=== PATIENT | male | born 1985 | race Caucasian/White ===

== ENCOUNTER 2017-02-10 15:46 | Emergency (ER) | payer OTHER ==
[2017-02-10 16:34] VITALS: BMI 27.3
--- NOTE | 2017-02-10 18:01 | PDOC ---
Attending Attestation - Resident Resident Name: Chad Hurt - ED Attending Attestation I have performed the following: I have examined & evaluated the patient, The case was reviewed & discussed with the resident, I agree w/resident's findings & plan, Exceptions are as noted - HPI HPI: 02/10/17 17:59 31-year-old male presents with atraumatic left-sided abdominal pain associated with hard stools and constipation. Last bowel movement was noted to be 5 days previously. - Physicial Exam PE: 02/10/17 17:59 Patient is awake and alert, afebrile, hemodynamically stable. heent-wnl; no scleral icterus; CTA; rrr; + mild to moderate left upper and left lower quadrant tenderness to palpation with some periumbilical tenderness to palpation , no guarding rebound; no CVA tenderness; no palpable hernias; - Medical Decision Making 02/10/17 18:00 31-year-old male presents with atraumatic left-sided abdominal pain with hard stools and constipations. We'll obtain CBC/CMP/UA. Will obtain CT of abdomen and pelvis with by mouth and IV contrast. Will reassess. Differential diagnoses includes diverticulitis versus colitis versus mass. 02/10/17 22:24 Patient with epiploic appendicitis. No acute issues. Patient tolerates by mouth. Will discharge.
--- NOTE | 2017-02-10 18:19 | PDOC ---
History of Present Illness - General History Source: Patient Exam Limitations: No Limitations - History of Present Illness Initial Comments: 02/10/17 17:28 Patient is a 31M with no significant medical history here today complaining of lower left quadrant for the past 5 days. He says his last bowel movement was 6 days ago. He hasn't had a normal bowel movement since then, endorsing only small amount of stool released since then. He denies nausea, vomiting, fevers and chills. He denies decreased PO intake. He denies chest pain, shortness of breath, and weakness. <Chad Hurt - Last Filed: 02/10/17 22:05> <Bobby Baker - Last Filed: 02/10/17 22:28> - General Chief Complaint: Pain Stated Complaint: ABD PAIN Time Seen by Provider: 02/10/17 17:05 Past History - Psycho/Social/Smoking Cessation Hx Anxiety: No Suicidal Ideation: No Smoking History: Never smoked Have you smoked in the past 12 months: No Hx Alcohol Use: No Drug/Substance Use Hx: No Substance Use Type: None <Chad Hurt - Last Filed: 02/10/17 22:05> <Bobby Baker - Last Filed: 02/10/17 22:28> - Past Medical History Allergies/Adverse Reactions: Allergies Allergy/AdvReac Type Severity Reaction Status Date / Time No Known Allergies Allergy Verified 02/10/17 16:34 Review of Systems - Review of Systems Comments:: 02/10/17 18:21 GENERAL/CONSTITUTIONAL: No fever or chills. No weakness. HEAD, EYES, EARS, NOSE AND THROAT: No change in vision. No sore throat. CARDIOVASCULAR: No chest pain or shortness of breath RESPIRATORY: No cough, wheezing, or hemoptysis. GASTROINTESTINAL: No nausea, vomiting. Positive for constipation. GENITOURINARY: No dysuria, frequency, or change in urination. MUSCULOSKELETAL: No joint or muscle swelling or pain. No neck or back pain. SKIN: No rash NEUROLOGIC: No headache, vertigo, loss of consciousness, or change in strength/ sensation. ENDOCRINE: No increased thirst. No abnormal weight change ALLERGIC/IMMUNOLOGIC: No hives or skin allergy. <Chad Hurt - Last Filed: 02/10/17 22:05> *Physical Exam - Vital Signs Last Vital Signs Temp Pulse Resp BP Pulse Ox 98.2 F 85 20 131/77 98 02/10/17 16:30 02/10/17 16:30 02/10/17 16:30 02/10/17 16:30 02/10/17 16:30 - Physical Exam Comments: 02/10/17 18:36 GENERAL: Awake, alert, and fully oriented, in no acute distress HEAD: No signs of trauma, normocephalic, atraumatic EYES: PERRLA, EOMI, sclera anicteric, conjunctiva clear ENT: Auricles normal inspection, hearing grossly normal, nares patent, oropharynx clear without exudates. Moist mucosa LUNGS: No distress, speaks full sentences, clear to auscultation bilaterally HEART: Regular rate and rhythm, normal S1 and S2, no murmurs, rubs or gallops, peripheral pulses normal and equal bilaterally. ABDOMEN: Tender to palpation in LLQ, positive rebound tenderness. EXTREMITIES: Normal inspection, Normal range of motion, no edema. No clubbing or cyanosis. NEUROLOGICAL: Cranial nerves II through XII grossly intact. Normal speech, normal gait, no focal sensorimotor deficits SKIN: Warm, Dry, normal turgor, no rashes or lesions noted. <Chad Hurt - Last Filed: 02/10/17 22:05> - Vital Signs Last Vital Signs Temp Pulse Resp BP Pulse Ox 98.2 F 85 20 131/77 98 02/10/17 16:30 02/10/17 16:30 02/10/17 16:30 02/10/17 16:30 02/10/17 16:30 <Bobby Baker - Last Filed: 02/10/17 22:28> ED Treatment Course - LABORATORY CBC & Chemistry Diagram: 02/10/17 18:00 02/10/17 18:00 - RADIOLOGY Radiology Studies Ordered: Category Date Time Status ABDOMEN & PELVIS CT WITH CONTR [CT] Stat CT Scan 02/10/17 17:19 Ordered <Chad Hurt - Last Filed: 02/10/17 22:05> - LABORATORY CBC & Chemistry Diagram: 02/10/17 18:00 02/10/17 18:00 - ADDITIONAL ORDERS Additional order review: Laboratory Results 02/10/17 02/10/17 18:00 18:00 Sodium 135 L Potassium 4.4 Chloride 101 Carbon Dioxide 28 Anion Gap 6 L BUN 14 D Creatinine 1.0 Creat Clearance w eGFR > 60 Random Glucose 84 Calcium 9.6 Total Bilirubin 0.3 AST 20 ALT 23 Alkaline Phosphatase 82 D Total Protein 8.7 H D Albumin 4.3 Lipase 192 Urine Color Straw Urine Appearance Clear Urine pH 5.0 D Urine Protein Negative Urine Glucose (UA) Negative Urine Ketones Negative Urine Blood 1+ H Urine Nitrite Negative Urine Bilirubin Negative Urine Urobilinogen Negative Urine RBC <1 Urine WBC <1 02/10/17 18:00 RBC 4.95 MCV 88.1 MCHC 33.2 RDW 13.8 MPV 9.2 Neutrophils % 55.8 Lymphocytes % 31.7 D Monocytes % 9.6 Eosinophils % 1.9 Basophils % 1.0 <Bobby Baker - Last Filed: 02/10/17 22:28> Medical Decision Making - Medical Decision Making 02/10/17 18:40 Patient is a 31M with no significant past medical history here with LLQ tenderness. Vital signs normal and stable. Rectal exam shows no stool burden, no masses, no blood. Differential diagnosis includes, but is not limited to: stool burden, diverticulitis, sbo. 02/10/17 19:33 Laboratory Tests 02/10/17 02/10/17 18:00 18:00 WBC 10.6 H D Hgb 14.5 D Hct 43.6 Plt Count 356 D Lipase 192 CBC shows small white count. Lipase neg. UA neg. CT pending. 02/10/17 21:58 CT shows acute epiploic appendagitis along the mid descending colon. 1 cm benign appearing density is seen in the left psoterior iliac bone. Correlation with 4 month MRI suggested. Patient notified of results and understands. Patient improved and ambulatory at discharge. <Chad Hurt - Last Filed: 02/10/17 22:05> *DC/Admit/Observation/Transfer - Discharge Dispostion Admit: No <Chad Hurt - Last Filed: 02/10/17 22:05> <Bobby Baker - Last Filed: 02/10/17 22:28> Diagnosis at time of Disposition: Epiploic appendagitis - Discharge Dispostion Disposition: HOME Condition at time of disposition: Improved - Patient Instructions Printed Discharge Instructions: DI for Abdominal Pain-Adult Additional Instructions: Please follow up with your PCP over the mass found on your iliac bone. It is most likely benign, but following up will be helpful.
[2017-02-10 18:35] LABS: EOSINOPHIL 1.9 % (0-4.5); MCH 29.3 pg (25.7-33.7); MCHC 33.2 g/dl (32.0-35.9); MEAN CELL VOLUME 88.1 fl (80-96); MEAN PLT VOLUME 9.2 fl (7.5-11.1); NEUTROPHILS 55.8 % (42.8-82.8); PLATELET COUNT 356 K/MM3 (134-434); RDW 13.8 % (11.9-15.9); URINE APPEARANCE CLEAR; URINE BILIRUBIN NEGATIVE (NEGATIVE); URINE BLOOD 1+ (NEGATIVE); URINE COLOR STRAW; URINE GLUCOSE (UA) NEGATIVE (NEGATIVE); URINE KETONE NEGATIVE (NEGATIVE); URINE LEUK ESTERASE NEGATIVE (NEGATIVE); URINE NITRITE NEGATIVE (NEGATIVE); URINE PROTEIN NEGATIVE (NEGATIVE); URINE UROBILINOGEN NEGATIVE mg/dL (0.2-1.0); WHITE BLOOD COUNT 10.6 K/mm3 (4.0-10.0)
[2017-02-10 18:46] LABS: URINE RBC <1 /hpf (0-3); URINE WBC <1 /hpf (3-5)
[2017-02-10 19:01] LABS: ALBUMIN 4.3 g/dl (3.4-5.0); ANION GAP 6 (8-16); CALCIUM 9.6 mg/dL (8.5-10.1); CO2 28 mmol/L (21-32); GLUCOSE,RANDOM 84 mg/dL (74-106); SGOT/AST 20 U/L (15-37)
[2017-02-10 19:14] LABS: ALK PHOS 82 U/L (45-117); BILIRUBIN,TOTAL 0.3 mg/dL (0.2-1.0); TOT PROT 8.7 g/dl (6.4-8.2)
[2017-02-10 19:15] LABS: SGPT/ALT 23 U/L (12-78)
[2017-02-10 22:38] VITALS: BP 128/78; PULSE 84; TEMP 98.7
== END 2017-02-10 22:38 | disposition home or self-care (01) ==
LOC: JER 15:46
DX: K63.89 Other specified diseases of intestine (principal)
CPT/HCPCS: 36415; 74177-TC; 80053; 81003; 81015; 83690; 85025; 99283-25